=== PATIENT | male | born 1950 | race Two or more races ===

== ENCOUNTER → 2017-07-31 | Outpatient (CLI) | payer OTHER ==
[~2017-07-31] MED LIST: None at this Time
== END | disposition home or self-care (01) ==
LOC: STAR 08:40
PROVIDERS: ATTEND Surgery
DX: Z01.818 Encounter for other preprocedural examination (principal); K40.20 Bilateral inguinal hernia, without obstruction or gangrene, not specified as recurrent
CPT/HCPCS: 93005

== ENCOUNTER 2017-08-14 10:40 | Day surgery (SDC) | payer OTHER ==
[2017-07-31 09:35] VITALS: BP 142/90
[~2017-08-14] VITALS: Ht 167.6 cm; Wt 67.0 kg
[~2017-08-14 10:40] MED LIST changes: +BUPIVACAINE/PF 0.5% ONE
[2017-08-14] MEDS ORDERED: LACTATED RINGERS 1,000 ML IV SCH (11:14)
[2017-08-14] MEDS ORDERED: LIDOCAINE 1%, 2ML SQ PRN (11:30)
[2017-08-14] MEDS ORDERED: FENTANYL PF 100 MCG/2ML ONE ×2 (12:42)
[2017-08-14] MEDS ORDERED: MIDAZOLAM 1 MG/ML, 2ML ONE (12:42)
[2017-08-14] MEDS ORDERED: DEXAMETHASONE 4 MG/ML, 1ML ONE (13:14)
[2017-08-14] MEDS ORDERED: ONDANSETRON 2MG/ML, 2ML ONE (13:14)
[2017-08-14] MEDS ORDERED: GLYCOPYRROLATE 0.2MG/1ML ONE (13:14)
[2017-08-14] MEDS ORDERED: ROCURONIUM 10 MG/ML ONE ×3 (13:14)
[2017-08-14] MEDS ORDERED: CEFAZOLIN 1,000 MG ONE (13:14)
[2017-08-14] MEDS ORDERED: SUCCINYLCHOLINE 20 MG/ML, 10ML ONE (13:14)
[2017-08-14] MEDS ORDERED: NEOSTIGMINE 1 MG/ML, 10ML ONE (13:14)
[2017-08-14] MEDS ORDERED: PROPOFOL 10 MG/ML, 20ML ONE (13:14)
[2017-08-14] MEDS ORDERED: OXYcodone 5 MG/5 ML ORAL.SOL UDC PO PRN (13:30)
[2017-08-14] MEDS ORDERED: MIDAZOLAM 1 MG/ML, 2ML IV PRN (13:30)
[2017-08-14] MEDS ORDERED: hydrALAzine 20 MG/ML, 1ML IV PRN (13:30)
[2017-08-14] MEDS ORDERED: ACETAMINOPHEN 325 MG TABLET PO PRN (13:30)
[2017-08-14] MEDS ORDERED: HYDROmorphone 1 MG/ML, 1ML IV PRN (13:30)
[2017-08-14] MEDS ORDERED: LABETALOL 5MG/ML, 20ML IV PRN (13:30)
[2017-08-14] MEDS ORDERED: ALBUTEROL SULFATE 2.5 MG/3 ML NPPB PRN (13:30)
[2017-08-14] MEDS ORDERED: PROMETHAZINE 25 MG/ML, 1ML IV PRN (13:30)
[2017-08-14] MEDS ORDERED: MEPERIDINE/PF 25MG/0.5ML IVPush PRN (13:30)
[2017-08-14] MEDS ORDERED: HYDROcodone/APAP 7.5-325MG/15ML UDC PO PRN (13:30)
[2017-08-14] MEDS ORDERED: EPHEDRINE 50 MG/ML, 1ML IVPush PRN (13:30)
[2017-08-14] MEDS ORDERED: ONDANSETRON 2MG/ML, 2ML IVPush PRN (13:30)
[2017-08-14] MEDS ORDERED: METOPROLOL 1 MG/ML, 5ML IV PRN (13:30)
[2017-08-14] MEDS ORDERED: FENTANYL PF 100 MCG/2ML IV PRN (13:30)
[2017-08-14] MEDS ORDERED: BUPIVACAINE/PF-EPI 0.5% 1:200K IM ONE (13:34)
[2017-08-14] MEDS ORDERED: ACETAMINOPHEN 325 MG TABLET ONE (15:01)
[2017-08-14] MEDS ORDERED: OXYcodone 5 MG/5 ML ORAL.SOL UDC ONE (15:02)
== END 2017-08-14 19:00 | disposition home or self-care (01) ==
LOC: OUT 10:40
PROVIDERS: ATTEND Surgery
DX: K40.20 Bilateral inguinal hernia, without obstruction or gangrene, not specified as recurrent (principal)
CPT/HCPCS: 49650; C1781; J0330; J0690; J1100; J2250; J2405; J2704; J2710; J3010; J3490; J7120